=== PATIENT | male | born 1990 | race Caucasian/White ===

== ENCOUNTER 2021-05-03 15:38 | Emergency (ER) | payer OTHER, SELFPAY ==
[2021-05-03 16:05] VITALS: BP 154/87; PULSE 71; RESP 20; TEMP 37.1; O2SAT 100
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
--- NOTE | 2021-05-03 22:49 | ED.PSYCH ---
HPI - Psych General Chief Complaint: Psychiatric Symptoms Stated Complaint: Mental health crisis Time Seen by Provider: 05/03/21 22:42 Source: patient and family Mode of arrival: Ambulatory History of Present Illness HPI Narrative: Patient is a 31-year-old male. He does have a history of depression. Is not currently taking any medications nor seeing anyone for this. Normally lives in [facility] with his brother but recently he came back to live with his parents here locally. He states that over the past 4 5 days his depression seems to have worsened somewhat. Is not suicidal. Is not homicidal. Denies any drug or alcohol use. Came into the emergency department because of the worsening depression. Does not have a primary doctor in this area. Related Data Previous Rx's Medication Instructions Recorded lorazepam 0.5 mg tablet (Ativan) 0.5 mg PO BEDTIME PRN #7 tab 05/03/21 Allergies Allergy/AdvReac Type Severity Reaction Status Date / Time No Known Drug Allergies Allergy Verified 05/03/21 16:10 Review of Systems Constitutional Constitutional: Reports system reviewed and no additional complaints, except as documented Cardiovascular Cardiovascular: Reports system reviewed and no additional complaints, except as documented Respiratory Respiratory: Reports system reviewed and no additional complaints, except as documented Gastrointestinal Gastrointestinal: Reports system reviewed and no additional complaints, except as documented Neurologic Neurologic: Denies confusion Psychiatric Psychiatric: Reports abnormal sleep pattern, Reports anxiety, Denies confusion, Reports depression, Denies homicidal ideation and Denies suicidal ideation Hematologic/Lymphatic On Anticoagulants: No Patient History Medical History Depression Exam Initial Vital Signs Initial Vital Signs: Vital Signs Temperature 98.7 F 05/03/21 16:05 Pulse Rate 71 05/03/21 16:05 Respiratory Rate 20 05/03/21 16:05 Blood Pressure 154/87 H 05/03/21 16:05 Pulse Oximetry 100 05/03/21 16:05 HENMT Head: normal to inspection and normocephalic Resp Effort & Inspection: normal respiratory effort Cardio Rate: regular rate Skin General: no rashes or lesions noted Neuro General: patient alert, patient awake and patient oriented x3 Extrem General: normal to inspection Psych Appearance: grossly normal Course Orders Ordered: ED Orders 05/03/21 16:03 Consult to [facility] [place] [employer] Stat Vital Signs Vital signs: Vital Signs - 8 hr 05/03/21 22:53 Pulse Rate 67 Respiratory Rate 16 Blood Pressure 164/81 H Pulse Oximetry 97 MDM - Psych MDM Narrative Medical decision making narrative: Patient was seen by social Work prior to my evaluation and was given resources for mental health providers here in the local area. He is not suicidal. Not homicidal. Will send home with Ativan to try to help with some of his anxiety issues. He was also given information to make contact the primary doctor in the local area. He was given return precautions. He is alert oriented x3. GCS of 15 and in my opinion has a capacity to make decisions. There is no signs of any intoxication. He expressed understanding and agreement this plan. His mother was at bedside also expressed agreement the plan. Discharge Plan Departure Patient Disposition: Home Clinical Impression: Depression Instructions: Depression Activity Restrictions/Additional Instructions: I do recommend that you contact the numbers on the information that you were provided in order to set up follow-up appointments. You can also contact the health teacher resource [phone]. This individual can help you establish a primary doctor in this area. Return to the emergency department for any new or worsening symptoms Prescriptions: New lorazepam [Ativan] 0.5 mg tablet 0.5 mg PO BEDTIME PRN (Reason: anxiety) Qty: 7 RF: 0 Referrals: Miscellaneous,Doctor, MD [Primary Care Provider] -
[2021-05-03 22:53] VITALS: BP 164/81; PULSE 67; RESP 16; O2SAT 97
== END 2021-05-03 22:53 | disposition home or self-care (01) ==
PROVIDERS: Emergency Provider Emergency Medicine
DX: F32.9 Major depressive disorder, single episode, unspecified (principal)
CPT/HCPCS: 99282; 99283